=== PATIENT | female | born 1990 | race African-American/Black ===

== ENCOUNTER 2020-01-12 21:25 | Emergency (ER) | payer OTHER, SELFPAY ==
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
[2020-01-12 21:27] VITALS: BP 125/88; PULSE 97; RESP 20; TEMP 37.3; O2SAT 100
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
[2020-01-12] MEDS: ACETAMINOPHEN 500 MG TABLET 1000 MG PO (22:28)
== END 2020-01-12 23:02 | disposition home or self-care (01) ==
PROVIDERS: Emergency Provider Emergency Medicine
DX: S16.1XXA Strain of muscle, fascia and tendon at neck level, initial encounter (principal); S80.02XA Contusion of left knee, initial encounter; F17.200 Nicotine dependence, unspecified, uncomplicated; R73.03 Prediabetes; Z87.440 Personal history of urinary (tract) infections; V43.52XA Car driver injured in collision with other type car in traffic accident, initial encounter
CPT/HCPCS: 70450; 72125; 73564; 81025; 99284; A9270; L0140